=== PATIENT | male | born 1970 | race African-American/Black ===

== ENCOUNTER 2019-02-07 22:35 | Emergency (ER) | payer MEDICAID ==
[~2019-02-07] VITALS: Ht 177.8 cm; Wt 71.0 kg
[2019-02-07] MEDS ORDERED: IBUPROFEN 600MG TABLET PO ONE (23:00)
[2019-02-08 00:02] VITALS: BP 100/68
== END 2019-02-08 01:23 | disposition home or self-care (01) ==
LOC: ER 22:35
DX: M54.9 Dorsalgia, unspecified (principal); V49.9XXA Car occupant (driver) (passenger) injured in unspecified traffic accident, initial encounter; Y93.9 Activity, unspecified; Y92.410 Unspecified street and highway as the place of occurrence of the external cause
CPT/HCPCS: 72100; 99283

== ENCOUNTER 2021-04-20 16:15 | Emergency (ER) | payer MEDICAID ==
[~2021-04-20] VITALS: Ht 177.8 cm; Wt 87.0 kg
[2021-04-20] MEDS ORDERED: NALOXONE HCL 0.4 MG/ML 1ML VIAL IV PRN (17:00)
[2021-04-20 17:34] LABS: BASOPHILS % 1.3 % (0.0-2.0); EOSINOPHILS % 4.2 % (0.0-5.0); HEMATOCRIT. 36.9 % (42.0-52.0); HEMOGLOBIN. 12.6 g/dL (14.0-18.0); LYMPHOCYTES % 31.8 % (20.0-50.0); MEAN CORPUSCULAR HEMOGLOBIN 34.7 pg (28.0-32.0); MEAN CORPUSCULAR VOLUME 101.7 fL (80.0-94.0); MEAN PLATELET VOLUME 7.9 fl (7.4-10.4); MONOCYTES % 8.1 % (2.0-8.0); NEUTROPHILS % 54.6 % (40.0-76.0); PLATELET 278 x1000/uL (130-400); RED BLOOD CELL COUNT 3.62 mill/uL (4.7-6.1); RED CELL DISTRIBUTION WIDTH 14.2 % (11.6-14.6)
[2021-04-20 17:40] LABS: CHLORIDE 112 mEq/L (98-107)
[2021-04-20 17:55] LABS: ETHANOL BLOOD 308 mg/dL
[2021-04-20 18:14] LABS: *AMPHETAMINES SCREEN URINE NEGATIVE (NEGATIVE); *BARBITURATES SCREEN URINE NEGATIVE (NEGATIVE); *BENZODIAZEPINES SCREEN URINE PRESUMTIVE POSITIVE (NEGATIVE)
[2021-04-20 18:15] LABS: *COCAINE SCREEN URINE NEGATIVE (NEGATIVE); CANNABINOID URINE SCREEN NEGATIVE (NEGATIVE); METHADONE URINE SCREEN NEGATIVE (NEGATIVE); OPIATES URINE SCREEN NEGATIVE (NEGATIVE); PHENCYCLIDINE URINE SCREEN PRESUMTIVE POSITIVE (NEGATIVE)
[2021-04-20 19:40] VITALS: BP 118/86
== END 2021-04-20 19:49 | disposition home or self-care (01) ==
LOC: ER 16:15
DX: F16.129 Hallucinogen abuse with intoxication, unspecified (principal); F10.129 Alcohol abuse with intoxication, unspecified; Y90.8 Blood alcohol level of 240 mg/100 ml or more
CPT/HCPCS: 36415; 80053; 80305; 80320; 85025; 96374; 99283; J2310; G0480

== ENCOUNTER 2024-01-04 21:53 | Emergency (ER) | payer MEDICAID ==
[~2024-01-04] VITALS: Ht 182.9 cm; Wt 83.0 kg
[2024-01-04 21:57] VITALS: BP 116/72; PULSE 78; RESP 16; TEMP 98.1; O2SAT 98
== END 2024-01-05 01:19 | disposition left against medical advice (07) ==
LOC: ER 21:53
DX: R07.9 Chest pain, unspecified (principal); Z53.21 Procedure and treatment not carried out due to patient leaving prior to being seen by health care provider
CPT/HCPCS: 71045; 93005